=== PATIENT | female | born 1970 | race Caucasian/White ===

== ENCOUNTER 2020-02-23 13:41 | Emergency (ER) | payer OTHER ==
[2020-02-23 14:00] VITALS: RESP 18; TEMP 98.1
[2020-02-23] MEDS ORDERED: KETOROLAC 30 MG/ML 1 ML VIAL IVP STA (14:30)
[2020-02-23] MEDS ORDERED: SODIUM CHLORIDE 0.9% 1,000 ML IV STA (14:30)
[2020-02-23 15:10] LABS: Appearance,Urine Clear (Clear); Bacteria,Urine Rare /hpf; Bilirubin,Urine Negative (Negative); Blood,Urine Negative (Negative); Color,Urine Yellow; Glucose,Urine (UA) Negative (Negative); Ketones,Urine Negative (Negative); Leukocyte Esterase,Urine Small (Negative); Mucus,Urine Rare /hpf; Nitrite,Urine Negative (Negative); PH, Urine 5.5 (5.0-8.0); Protein,Urine Negative (Negative); RBC,Urine <1 /hpf (0-5); Specific Gravity,Urine 1.021 (1.001-1.035); Squamous Epithelial Cell,Urine 5 /hpf (0-4); Urobilinogen,Urine <2.0 mg/dL (<2.0); WBC,Urine 4 /hpf (0-5)
[2020-02-23 15:11] LABS: HCT 47.5 % (34.0-46.0); MCHC 33.6 g/dL (31.0-37.0); MCV 101.4 fL (80.0-100.0); Mean Platelet Volume 8.3; Platelet Count 303 k/uL (150-450); RBC 4.69 m/uL (3.80-5.40); RDW 12.5 % (11.5-15.5); WBC 12.9 k/uL (3.8-10.6)
[2020-02-23 15:14] LABS: ALT 100 U/L (4-34); AST 84 U/L (14-36); African American GFR (CKD) >90 (>60 ml/min/1.73 sqM); Albumin 4.3 g/dL (3.5-5.0); Alkaline Phosphatase 70 U/L (38-126); Anion Gap 9 mmol/L; Blood Urea Nitrogen 18 mg/dL (7-17); Calcium 9.2 mg/dL (8.4-10.2); Carbon Dioxide 20 mmol/L (22-30); Chloride 108 mmol/L (98-107); Glucose 86 mg/dL (74-99); Non-African American GFR(CKD) >90 (>60 ml/min/1.73 sqM); Sodium 137 mmol/L (137-145); Total Bilirubin 1.2 mg/dL (0.2-1.3)
--- NOTE | 2020-02-23 15:21 | ED ---
General Adult HPI - General Chief complaint: Urogenital Stated complaint: Poss UTI Time Seen by Provider: 02/23/20 14:22 Source: patient Mode of arrival: ambulatory Limitations: no limitations - History of Present Illness Initial comments: Patient is a 49-year-old female, with recent diagnosis of hepatitis C, presenting to the emergency Department with complaints of right-sided flank pain 5 days. Patient states the pain started in her right flank area and then has been moving towards her right groin area. She states she has had a kidney stone many years ago and feels like this may be similar. She admits to history of C- section, no other abdominal surgeries. She denies having nausea, vomiting, diarrhea. She denies recent fever or chills. She denies any urinary complaints such as dysuria increase in frequency. Patient states she is also start treatment for hepatitis C before the COVID virus restrictions. Patient does admit to occasionally drinking and feels like her symptoms have increased with alcohol. She has no other complaints at this time. Upon arrival to the ER, her vital signs are stable. - Related Data Allergies Allergy/AdvReac Type Severity Reaction Status Date / Time No Known Allergies Allergy Verified 02/23/20 14:00 Review of Systems ROS Statement: Those systems with pertinent positive or pertinent negative responses have been documented in the HPI. ROS Other: All systems not noted in ROS Statement are negative. Past Medical History Past Medical History: Coronary Artery Disease (CAD), Hyperlipidemia, Hypertension, Memory Impairment Additional Past Medical History / Comment(s): hepatitis C History of Any Multi-Drug Resistant Organisms: None Reported Past Surgical History: Heart Catheterization With Stent, Pacemaker Past Psychological History: No Psychological Hx Reported Smoking Status: Current every day smoker Past Alcohol Use History: Occasional Past Drug Use History: Marijuana General Exam - General Exam Comments Initial Comments: GENERAL: Well-appearing, well-nourished and in no acute distress. HEAD: Atraumatic, normocephalic. EYES: Pupils equal round and reactive to light, extraocular movements intact, sclera anicteric, conjunctiva are normal. ENT: TMs normal, nares patent, oropharynx clear without exudates. Moist mucous membranes. NECK: Normal range of motion, supple without lymphadenopathy or JVD. LUNGS: Breath sounds clear to auscultation bilaterally and equal. No wheezes rales or rhonchi. HEART: Regular rate and rhythm without murmurs, rubs or gallops. ABDOMEN: Right flank pain, right side of abdomen tenderness, mild right lower quadrant tenderness. Soft, normoactive bowel sounds. No guarding, no rebound. No masses appreciated. : Deferred EXTREMITIES: Normal range of motion, no pitting or edema. No clubbing or cyanosis. NEUROLOGICAL: Cranial nerves II through XII grossly intact. Normal speech, normal gait. PSYCH: Normal mood, normal affect. SKIN: Warm, Dry, normal turgor, no rashes or lesions noted. Limitations: no limitations Course Vital Signs 02/23/20 02/23/20 02/23/20 13:55 15:00 16:00 Temperature 98.1 F Pulse Rate 70 73 Respiratory 18 20 18 Rate Blood Pressure 123/85 126/81 O2 Sat by Pulse 100 100 100 Oximetry 02/23/20 16:30 Temperature Pulse Rate 73 Respiratory 18 Rate Blood Pressure 126/81 O2 Sat by Pulse 100 Oximetry Medical Decision Making - Medical Decision Making Patient is a 49-year-old female presenting with right sided abdominal pain 5 days. She was recently diagnosed with hepatitis C and is awaiting treatment post Covid restrictions. She has been seeing Dr. Gipson for this. Patient does admit to alcohol use. Vital signs are stable today. Lab work shows mild leukocytosis at 12.9, elevation of liver enzymes a 84 and 100. Urine shows no signs of infection. CT of the abdomen was obtained and shows no suspicious acute findings. Patient was given Toradol as well as fluids and reports improvement in her symptoms. I discussed with patient under symptoms are likely due to her hepatitis C infection. I recommended she stop drinking alcohol. She needs to continue with other fluids such as water. Patient was given a starter pack of Ultram for pain. Patient is agreeable with this plan of care. She will follow-up with Dr. Laureano. Return parameters were discussed with the patient and she verbalized understanding. - Lab Data Result diagrams: 02/23/20 14:50 02/23/20 14:50 Lab Results 02/23/20 02/23/20 02/23/20 Range/Units 14:50 14:50 14:50 WBC 12.9 H (3.8-10.6) k/uL RBC 4.69 (3.80-5.40) m/uL Hgb 16.0 (11.4-16.0) gm/dL Hct 47.5 H (34.0-46.0) % MCV 101.4 H (80.0-100.0) fL MCH 34.0 (25.0-35.0) pg MCHC 33.6 (31.0-37.0) g/dL RDW 12.5 (11.5-15.5) % Plt Count 303 (150-450) k/uL Neutrophils % (Manual) 43 % Lymphocytes % (Manual) 43 % Monocytes % (Manual) 11 % Eosinophils % (Manual) 3 % Neutrophils # (Manual) 5.55 (1.3-7.7) k/uL Lymphocytes # (Manual) 5.55 H (1.0-4.8) k/uL Monocytes # (Manual) 1.42 H (0-1.0) k/uL Eosinophils # (Manual) 0.39 (0-0.7) k/uL Nucleated RBCs 0 (0-0) /100 WBC Manual Slide Review Performed RBC Morphology Normal Sodium (137-145) mmol/L Potassium (3.5-5.1) mmol/L Chloride (98-107) mmol/L Carbon Dioxide (22-30) mmol/L Anion Gap mmol/L BUN (7-17) mg/dL Creatinine (0.52-1.04) mg/dL Est GFR (CKD-EPI)AfAm (>60 ml/min/1.73 sqM) Est GFR (CKD-EPI)NonAf (>60 ml/min/1.73 sqM) Glucose (74-99) mg/dL Calcium (8.4-10.2) mg/dL Total Bilirubin (0.2-1.3) mg/dL AST (14-36) U/L ALT (4-34) U/L Alkaline Phosphatase (38-126) U/L Total Protein (6.3-8.2) g/dL Albumin (3.5-5.0) g/dL Urine Color Yellow Urine Appearance Clear (Clear) Urine pH 5.5 (5.0-8.0) Ur Specific [place] 1.021 (1.001-1.035) Urine Protein Negative (Negative) Urine Glucose (UA) Negative (Negative) Urine Ketones Negative (Negative) Urine Blood Negative (Negative) Urine Nitrite Negative (Negative) Urine Bilirubin Negative (Negative) Urine Urobilinogen <2.0 (<2.0) mg/dL Ur Leukocyte Esterase Small H (Negative) Urine RBC <1 (0-5) /hpf Urine WBC 4 (0-5) /hpf Ur Squamous Epith Cells 5 H (0-4) /hpf Urine Bacteria Rare H (None) /hpf Urine Mucus Rare H (None) /hpf Urine HCG, Qual Not Detected (Not Detectd) 02/23/20 Range/Units 14:50 WBC (3.8-10.6) k/uL RBC (3.80-5.40) m/uL Hgb (11.4-16.0) gm/dL Hct (34.0-46.0) % MCV (80.0-100.0) fL MCH (25.0-35.0) pg MCHC (31.0-37.0) g/dL RDW (11.5-15.5) % Plt Count (150-450) k/uL Neutrophils % (Manual) % Lymphocytes % (Manual) % Monocytes % (Manual) % Eosinophils % (Manual) % Neutrophils # (Manual) (1.3-7.7) k/uL Lymphocytes # (Manual) (1.0-4.8) k/uL Monocytes # (Manual) (0-1.0) k/uL Eosinophils # (Manual) (0-0.7) k/uL Nucleated RBCs (0-0) /100 WBC Manual Slide Review RBC Morphology Sodium 137 (137-145) mmol/L Potassium 6.0 H (3.5-5.1) mmol/L Chloride 108 H (98-107) mmol/L Carbon Dioxide 20 L (22-30) mmol/L Anion Gap 9 mmol/L BUN 18 H (7-17) mg/dL Creatinine 0.76 (0.52-1.04) mg/dL Est GFR (CKD-EPI)AfAm >90 (>60 ml/min/1.73 sqM) Est GFR (CKD-EPI)NonAf >90 (>60 ml/min/1.73 sqM) Glucose 86 (74-99) mg/dL Calcium 9.2 (8.4-10.2) mg/dL Total Bilirubin 1.2 (0.2-1.3) mg/dL AST 84 H (14-36) U/L ALT 100 H (4-34) U/L Alkaline Phosphatase 70 (38-126) U/L Total Protein 8.0 (6.3-8.2) g/dL Albumin 4.3 (3.5-5.0) g/dL Urine Color Urine Appearance (Clear) Urine pH (5.0-8.0) Ur Specific [place] (1.001-1.035) Urine Protein (Negative) Urine Glucose (UA) (Negative) Urine Ketones (Negative) Urine Blood (Negative) Urine Nitrite (Negative) Urine Bilirubin (Negative) Urine Urobilinogen (<2.0) mg/dL Ur Leukocyte Esterase (Negative) Urine RBC (0-5) /hpf Urine WBC (0-5) /hpf Ur Squamous Epith Cells (0-4) /hpf Urine Bacteria (None) /hpf Urine Mucus (None) /hpf Urine HCG, Qual (Not Detectd) Disposition Clinical Impression: Right sided abdominal pain, Hepatitis C, Dehydration Disposition: HOME SELF-CARE Condition: Stable Instructions (If sedation given, give patient instructions): Abdominal Pain (ED) Additional Instructions: Please return to the Emergency Department if symptoms worsen or any other concerns. Follow-up with GI, Dr. Gipson as discussed. Continue to increase fluid intake. Is patient prescribed a controlled substance at d/c from ED?: No Referrals: None,Stated [Primary Care Provider] - 1-2 days Olga Gipson MD [STAFF PHYSICIAN] - 1-2 days
--- NOTE | 2020-02-23 15:21 | CT ---
EXAMINATION TYPE: CT abdomen pelvis wo con DATE OF EXAM: 02/23/2020 HISTORY: Right sided flank pain CT DLP: 487 mGycm. Automated Exposure Control for Dose Reduction was Utilized. TECHNIQUE: CT scan of the abdomen and pelvis is performed without oral or IV contrast. COMPARISON: NONE FINDINGS: Within the limitations of a non-contrast study, the following observations are made. LUNG BASES: Partial visualization of right-sided pacemaker leads. LIVER/GB: Contracted gallbladder. PANCREAS: No significant abnormality is seen. SPLEEN: Tiny curvilinear spleen or splenic remnant coronal image 67. ADRENALS: Slight low dense nodular thickening left adrenal gland favoring benign hyperplasia. KIDNEYS: No renal stones or hydronephrosis is seen bilaterally. No intraluminal calculi in the bladde r. BOWEL: Suboptimal evaluation of bowel without enteric contrast. No suspicious small or large bowel di latation. GENITAL ORGANS: Anteverted uterus projects just to left of midline. Occasional pelvic phlebolith. No suspicious adnexal masses. LYMPH NODES: No greater than 1cm abdominal or pelvic lymph nodes are appreciated. OSSEOUS STRUCTURES: No significant abnormality is seen. OTHER: No significant additional abnormality is seen. IMPRESSION: No renal stones or hydronephrosis is seen bilaterally. No suspicious acute finding identi fied on this study.
[2020-02-23 15:23] LABS: Eosinophils # (M) 0.39 k/uL (0-0.7); Lymphocytes # (M) 5.55 k/uL (1.0-4.8); Monocytes # (M) 1.42 k/uL (0-1.0); Neutrophils # (M) 5.55 k/uL (1.3-7.7); Neutrophils % (M) 43 %; Nucleated Red Blood Cells 0 /100 WBC (0-0); Total Cells Counted 100
[2020-02-23] MEDS ORDERED: traMADol 50 MG STARTER PACK 3 TAB BTL PO STA (16:24)
[2020-02-23 16:32] VITALS: BP 126/81; PULSE 73
== END 2020-02-23 16:35 | disposition home or self-care (01) ==
LOC: EC 13:41
DX: B19.20 Unspecified viral hepatitis C without hepatic coma (principal); E86.0 Dehydration; R10.9 Unspecified abdominal pain; D72.829 Elevated white blood cell count, unspecified; I25.10 Atherosclerotic heart disease of native coronary artery without angina pectoris; I10 Essential (primary) hypertension; F17.200 Nicotine dependence, unspecified, uncomplicated; Z95.0 Presence of cardiac pacemaker; Z95.5 Presence of coronary angioplasty implant and graft
CPT/HCPCS: 36415; 80053; 85025; 81001; 81025; 74176; 99284; 96374; 96361; J1885

== ENCOUNTER → 2020-03-16 | Outpatient (CLI) | payer SELFPAY ==
--- NOTE | 2020-03-16 11:33 | US ---
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 Hep C EXAM MEASUREMENTS: Liver Length: 11.9 cm Gallbladder Wall: 0.2 cm CBD: 0.4 cm Right Kidney: 10.0 x 4.6 x 4.2 cm Pancreas: visualized portions wnl, tail obscured by overlying midline bowel gas Liver: wnl Gallbladder: wnl Evidence for sonographic Delarosa's sign: no CBD: wnl Right Kidney: wnl IMPRESSION: The liver is homogeneous sonographically despite the patient's known hepatocellular disea se. No suspicious mass seen on today's examination.
[2020-03-16 12:45] LABS: HCT 50.4 % (34.0-46.0); HGB 17.2 gm/dL (11.4-16.0); MCH 34.6 pg (25.0-35.0); MCHC 34.1 g/dL (31.0-37.0); MCV 101.7 fL (80.0-100.0); Mean Platelet Volume 9.5; Platelet Count 278 k/uL (150-450); RBC 4.96 m/uL (3.80-5.40); RDW 12.4 % (11.5-15.5); WBC 10.1 k/uL (3.8-10.6)
[2020-03-16 12:48] LABS: Prothrombin Time 10.4 sec (9.0-12.0)
[2020-03-16 12:55] LABS: African American GFR (CKD) >90 (>60 ml/min/1.73 sqM); Non-African American GFR(CKD) >90 (>60 ml/min/1.73 sqM)
[2020-03-16 20:34] LABS: Hepatitis A Antibody IgM Non-Reactive (Non-Reactive); Hepatitis B Core IgM Non-Reactive (Non-Reactive); Hepatitis B Surface Antigen Non-Reactive (Non-Reactive); Hepatitis C IgG Antibody Reactive (Non-Reactive)
== END | disposition home or self-care (01) ==
LOC: RADUSWWP 10:12
PROVIDERS: ATTEND Internal Medicine Gastroenterology
DX: K76.89 Other specified diseases of liver (principal); B18.2 Chronic viral hepatitis C
CPT/HCPCS: 76705; 80074; 82565; 85027; 85610; 87522

== ENCOUNTER → 2020-08-14 | Outpatient (CLI) | payer BC ==
[2020-08-14 12:46] LABS: HCT 52.8 % (34.0-46.0); HGB 16.9 gm/dL (11.4-16.0); MCH 33.9 pg (25.0-35.0); MCV 106.1 fL (80.0-100.0); Macrocytosis Slight; Mean Platelet Volume 7.7; Platelet Count 360 k/uL (150-450); RBC 4.97 m/uL (3.80-5.40); RDW 12.5 % (11.5-15.5); WBC 12.1 k/uL (3.8-10.6)
[2020-08-14 20:38] LABS: Hepatitis A Antibody IgM Non-Reactive (Non-Reactive); Hepatitis B Core IgM Non-Reactive (Non-Reactive); Hepatitis C IgG Antibody Reactive (Non-Reactive)
[2020-08-14 21:51] LABS: Hepatitis B Surface Antigen Non-Reactive (Non-Reactive)
[2020-08-15 16:24] LABS: Hepatits C Virus RNA Not detected (Not detected); Hepatits C Virus RNA, Quant <12 IU/mL (<12); LOG HCV IU/mL <1.08 (<1.08)
== END | disposition home or self-care (01) ==
LOC: LABWHC1 11:05
PROVIDERS: ATTEND Physician Assistant
DX: B18.2 Chronic viral hepatitis C (principal)
CPT/HCPCS: 36415; 80074; 85027; 87522

== ENCOUNTER 2020-10-03 14:36 | Emergency (ER) | payer BC ==
[2020-10-03 14:43] VITALS: BP 153/105; PULSE 77; RESP 18; TEMP 98.4
--- NOTE | 2020-10-03 15:00 | ED ---
Extremity Problem HPI - General Chief complaint: Extremity Problem,Nontraumatic Stated complaint: R Leg Pain Time Seen by Provider: 10/03/20 14:50 Source: patient, RN notes reviewed Mode of arrival: ambulatory Limitations: no limitations - History of Present Illness Initial comments: 49-year-old female presented emergency from for rash or leg. Patient states her is her rashes showed up overnight, her leg is achy in the area slightly itchy denies any medication soaps lotions surgeon cannot get test by anything. Patient has no other complaints. - Related Data Previous Rx's Medication Instructions Recorded valACYclovir HCL [Valtrex] 1,000 mg PO Q8HR #30 tab 10/03/20 Allergies Allergy/AdvReac Type Severity Reaction Status Date / Time No Known Allergies Allergy Verified 10/03/20 14:43 Review of Systems ROS Statement: Those systems with pertinent positive or pertinent negative responses have been documented in the HPI. ROS Other: All systems not noted in ROS Statement are negative. Past Medical History Past Medical History: Coronary Artery Disease (CAD), Hyperlipidemia, Hypertension, Myocardial Infarction ([place]) Additional Past Medical History / Comment(s): hepatitis C History of Any Multi-Drug Resistant Organisms: None Reported Past Surgical History: Heart Catheterization With Stent, Pacemaker Past Psychological History: No Psychological Hx Reported Smoking Status: Current every day smoker Past Alcohol Use History: Occasional Past Drug Use History: Marijuana General Exam Limitations: no limitations General appearance: alert, in no apparent distress Head exam: Present: atraumatic, normocephalic, normal inspection Eye exam: Present: normal appearance, PERRL, EOMI. Absent: scleral icterus, conjunctival injection, periorbital swelling ENT exam: Present: normal exam, normal oropharynx, mucous membranes moist Neck exam: Present: normal inspection, full ROM. Absent: tenderness, meningismus, lymphadenopathy Respiratory exam: Present: normal lung sounds bilaterally, decreased breath sounds. Absent: respiratory distress, wheezes, rales, rhonchi, stridor Cardiovascular Exam: Present: regular rate, normal rhythm, normal heart sounds. Absent: systolic murmur, diastolic murmur, rubs, gallop, clicks Skin exam: Present: warm, dry, intact, normal color, rash (Right lower leg over the anterior surface of the lei there is noted vesicular rash mild erythema and surrounding tenderness no posterior calf tenderness pedal pulses equal bilaterally) Course Vital Signs 10/03/20 14:40 Temperature 98.4 F Pulse Rate 77 Respiratory 18 Rate Blood Pressure 153/105 O2 Sat by Pulse 97 Oximetry Medical Decision Making - Medical Decision Making 41-year-old presented for rash. This concerning for possible early shingles type rash. Patient was started on Valtrex. We discussed possibility of contrac ting dermatitis though less worrisome. Return parameters were discussed close follow-up was discussed. Disposition Clinical Impression: Shingles, Contact dermatitis Disposition: HOME SELF-CARE Condition: Stable Instructions (If sedation given, give patient instructions): Shingles (ED) Additional Instructions: Please return to the Emergency Department if symptoms worsen or any other concerns. Prescriptions: valACYclovir HCL [Valtrex] 1,000 mg PO Q8HR #30 tab Is patient prescribed a controlled substance at d/c from ED?: No Referrals: Lalita Valentine DO [Primary Care Provider] - 1-2 days Time of Disposition: 15:00
== END 2020-10-03 15:13 | disposition home or self-care (01) ==
LOC: EC 14:36
DX: L25.9 Unspecified contact dermatitis, unspecified cause (principal); B02.9 Zoster without complications; I25.2 Old myocardial infarction; F17.200 Nicotine dependence, unspecified, uncomplicated
CPT/HCPCS: 99283

== ENCOUNTER 2020-11-07 00:02 | Emergency (ER) | payer BC ==
[2020-11-07 00:07] VITALS: BP 160/99; PULSE 91; RESP 20; TEMP 98.4
[2020-11-07] MEDS ORDERED: HYDROcodone/APAP 5-325MG 1 EACH TAB PO STA (00:25)
--- NOTE | 2020-11-07 00:37 | ED ---
General Adult HPI - General Chief complaint: Extremity Injury, Lower Stated complaint: Left ankle injury Time Seen by Provider: 11/07/20 00:13 Source: patient, RN notes reviewed Mode of arrival: ambulatory Limitations: no limitations - History of Present Illness Initial comments: 50-year-old female presents emergency Department chief complaint severe left ankle pain. Patient states started a few hours ago. Patient states she's unsure if she stepped wrong or how this happened. Patient states there is swelling on the lateral portion of her ankle. Patient states hurts with any weightbearing or movement. No redness no fevers chills no paresthesias. Patient offers no complaints. - Related Data Previous Rx's Medication Instructions Recorded valACYclovir HCL [Valtrex] 1,000 mg PO Q8HR #30 tab 10/03/20 Ibuprofen [Motrin] 600 mg PO Q8HR PRN #20 tab 11/07/20 Allergies Allergy/AdvReac Type Severity Reaction Status Date / Time No Known Allergies Allergy Verified 11/07/20 00:06 Review of Systems ROS Statement: Those systems with pertinent positive or pertinent negative responses have been documented in the HPI. ROS Other: All systems not noted in ROS Statement are negative. Past Medical History Past Medical History: Coronary Artery Disease (CAD), Hyperlipidemia, Hypertension, Myocardial Infarction ([place]) Additional Past Medical History / Comment(s): hepatitis C History of Any Multi-Drug Resistant Organisms: None Reported Past Surgical History: Heart Catheterization With Stent, Pacemaker Past Psychological History: No Psychological Hx Reported Smoking Status: Current every day smoker Past Alcohol Use History: Occasional Past Drug Use History: Marijuana General Exam Limitations: no limitations General appearance: alert, in no apparent distress Head exam: Present: atraumatic, normocephalic, normal inspection Eye exam: Present: normal appearance, PERRL, EOMI. Absent: scleral icterus, conjunctival injection, periorbital swelling Neck exam: Present: normal inspection. Absent: tenderness, meningismus, lymphadenopathy Respiratory exam: Present: normal lung sounds bilaterally. Absent: respiratory distress, wheezes, rales, rhonchi, stridor Cardiovascular Exam: Present: regular rate, normal rhythm, normal heart sounds. Absent: systolic murmur, diastolic murmur, rubs, gallop, clicks Extremities exam: Present: other (Left ankle there is moderate swelling of lateral portion, tenderness with palpation neurovascular intact there is no proximal tib-fib tenderness no distal foot tenderness) Course Vital Signs 11/07/20 00:04 Temperature 98.4 F Pulse Rate 91 Respiratory 20 Rate Blood Pressure 160/99 O2 Sat by Pulse 99 Oximetry Medical Decision Making - Medical Decision Making 50-year-old female presented for left ankle pain. Patient has moderate swelling and tenderness over lateral portion consistent with an ankle sprain. Patient has no recollection of a significant injury though she states she may have injured it. There is no signs of infection she has neurovascular intact with equal pulses and no calf tenderness. Patient will be placed in an ankle stirrup brace follow-up with orthopedics if no improvement patient provided pain control. Disposition Clinical Impression: Left ankle pain, Left ankle sprain Disposition: HOME SELF-CARE Condition: Stable Instructions (If sedation given, give patient instructions): Ankle Sprain (ED) Additional Instructions: Please return to the Emergency Department if symptoms worsen or any other concerns. Prescriptions: Ibuprofen [Motrin] 600 mg PO Q8HR PRN #20 tab PRN Reason: Pain Is patient prescribed a controlled substance at d/c from ED?: No Referrals: Lalita Valentine DO [Primary Care Provider] - 1-2 days Lyle Patel DO [Doctor of Osteopathic Medicine] - 1-2 days Time of Disposition: 00:49
--- NOTE | 2020-11-07 00:47 | XR ---
EXAMINATION TYPE: XR ankle complete LT DATE OF EXAM: 11/07/2020 COMPARISON: NONE HISTORY: Ankle pain TECHNIQUE: 3 views FINDINGS: Ankle mortise is anatomic. I see no fracture nor dislocation. There is mild soft tissue swe lling over the lateral malleolus. The hindfoot appears intact. IMPRESSION: Mild soft tissue swelling. No fracture seen.
[2020-11-07] MEDS ORDERED: ACET/COD 300 MG/30 MG STARTER PACK 6 TAB BTL PO STA (00:50)
[2020-11-07] MEDS ORDERED: IBUPROFEN 600 MG STARTER PACK 4 TAB BTL PO STA (00:50)
== END 2020-11-07 01:10 | disposition home or self-care (01) ==
LOC: EC 00:02
DX: S93.402A Sprain of unspecified ligament of left ankle, initial encounter (principal); I25.10 Atherosclerotic heart disease of native coronary artery without angina pectoris; I10 Essential (primary) hypertension; I25.2 Old myocardial infarction; F17.200 Nicotine dependence, unspecified, uncomplicated; Z95.0 Presence of cardiac pacemaker; Z95.5 Presence of coronary angioplasty implant and graft; X50.9XXA Other and unspecified overexertion or strenuous movements or postures, initial encounter
CPT/HCPCS: 73610; 99283; 29515; L4350

== ENCOUNTER → 2020-11-15 | Outpatient (CLI) | payer BC ==
[2020-11-15 12:01] LABS: HCT 48.1 % (34.0-46.0); HGB 16.1 gm/dL (11.4-16.0); MCH 34.6 pg (25.0-35.0); MCHC 33.4 g/dL (31.0-37.0); MCV 103.8 fL (80.0-100.0); Macrocytosis Slight; Mean Platelet Volume 7.6; Platelet Count 319 k/uL (150-450); RBC 4.64 m/uL (3.80-5.40); RDW 12.1 % (11.5-15.5); WBC 7.9 k/uL (3.8-10.6)
[2020-11-15 20:27] LABS: Albumin 4.3 g/dL (3.80-4.90); Albumin/Globulin Ratio 1.72 (1.60-3.17); Bilirubin, Conjugated 0.2 mg/dL (0.20-0.40); Bilirubin,Unconjugated 0.4 mg/dL; Globulin 2.5 g/dL (1.6-3.3); Total Bilirubin 0.6 mg/dL (0.2-1.2); Total Protein 6.8 g/dL (6.2-8.2)
== END | disposition home or self-care (01) ==
LOC: LABWHC1 11:11
PROVIDERS: ATTEND Physician Assistant
DX: B18.2 Chronic viral hepatitis C (principal)
CPT/HCPCS: 36415; 80076; 85027; 87522

== ENCOUNTER → 2021-07-02 | Outpatient (CLI) | payer BC ==
[2021-07-02 20:54] LABS: HCT 46.6 % (37.2-46.3); HGB 15.5 g/dL (12.0-15.0); MCH 33.1 pg (27.0-32.0); MCHC 33.3 g/dL (32.0-37.0); MCV 99.6 fL (80.0-97.0); Mean Platelet Volume 10.7 fL (9.5-12.2); Platelet Count 310 X 10*3/uL (140-440); RBC 4.68 X 10*6/uL (4.10-5.20); RDW 13.2 % (11.5-14.5); WBC 9.52 X 10*3/uL (4.50-10.00)
[2021-07-02 20:59] LABS: INR 0.91 (0.90-1.11)
[2021-07-03 00:49] LABS: ALT 24 U/L (8-44); AST 31 U/L (13-35); Albumin/Globulin Ratio 1.56 (1.60-3.17); Alkaline Phosphatase 62 U/L (41-126); Bilirubin, Conjugated <0.20 mg/dL (0.20-0.40); Globulin 2.7 g/dL (1.6-3.3); Total Bilirubin 0.3 mg/dL (0.3-1.2); Total Protein 6.9 g/dL (6.2-8.2)
[2021-07-03 00:51] LABS: Chol/HDL Ratio 5.37; LDL Cholesterol,Calculated 167.4 mg/dL (0.0-131.0); VLDL Calculation 33.6 mg/dL (5.00-40.00)
== END | disposition home or self-care (01) ==
LOC: LABWHC1 12:34
PROVIDERS: ATTEND Physician Assistant
DX: E78.5 Hyperlipidemia, unspecified (principal); B18.2 Chronic viral hepatitis C
CPT/HCPCS: 36415; 80061; 80076; 85027; 85610; 87522

== ENCOUNTER 2021-07-08 15:42 | Observation (INO) | payer BC ==
[2021-07-08] MEDS ORDERED: ASPIRIN 325 MG TAB PO STA (16:02)
--- NOTE | 2021-07-08 16:02 | ED ---
General Adult HPI - General Chief complaint: Chest Pain Stated complaint: Chest pain/SOB/hand numbness Time Seen by Provider: 07/08/21 15:55 Source: patient, RN notes reviewed, old records reviewed Mode of arrival: wheelchair Limitations: no limitations - History of Present Illness Initial comments: 50-year-old female history of CAD status post [place] a proximally 7 years ago. Patient has had intermittent chest pain throughout the day today. She states it comes and goes lasting approximate 5 minutes per episode. She had some associated nausea without vomiting. No diaphoresis. Pain is in the center of her chest described as a pressure sensation. She is not currently on any anticoagulation. She does have history of hypercholesterolemia and is a current smoker. - Related Data Home Medications Medication Instructions Recorded Confirmed Rosuvastatin Calcium [Crestor] 40 mg PO DAILY 07/08/21 07/08/21 Allergies Allergy/AdvReac Type Severity Reaction Status Date / Time No Known Allergies Allergy Verified 07/08/21 15:45 Review of Systems ROS Statement: Those systems with pertinent positive or pertinent negative responses have been documented in the HPI. ROS Other: All systems not noted in ROS Statement are negative. Past Medical History Past Medical History: Coronary Artery Disease (CAD), Hyperlipidemia, Hypertension, Myocardial Infarction ([place]) Additional Past Medical History / Comment(s): hepatitis C History of Any Multi-Drug Resistant Organisms: None Reported Past Surgical History: Heart Catheterization With Stent, Pacemaker Past Psychological History: No Psychological Hx Reported Smoking Status: Current every day smoker Past Alcohol Use History: Occasional Past Drug Use History: Marijuana General Exam Limitations: no limitations General appearance: alert, in no apparent distress Head exam: Present: atraumatic, normocephalic Eye exam: Present: normal appearance, PERRL ENT exam: Present: normal exam Neck exam: Present: normal inspection. Absent: tenderness, meningismus Respiratory exam: Present: normal lung sounds bilaterally. Absent: respiratory distress, wheezes Cardiovascular Exam: Present: regular rate, normal rhythm GI/Abdominal exam: Present: soft. Absent: distended, tenderness, guarding Extremities exam: Present: normal inspection, normal capillary refill. Absent: pedal edema, calf tenderness Neurological exam: Present: alert, oriented X3, CN II-XII intact. Absent: motor sensory deficit Psychiatric exam: Present: normal affect, normal mood Skin exam: Present: warm, dry, intact Course Vital Signs 07/08/21 07/08/21 15:46 16:42 Temperature 97.8 F Pulse Rate 64 60 Respiratory 18 18 Rate Blood Pressure 164/101 168/96 O2 Sat by Pulse 97 95 Oximetry EKG Findings - EKG Comments: EKG Findings:: EKG: Atrial paced rhythm, rate of 61, SD interval is 196, QRS duration 74, QTC 416, no ST segment elevation. Medical Decision Making - Medical Decision Making 50-year-old female with history of CAD presenting with chest pain. Pain does have typical features. EKG is nonischemic. Chest x-ray is negative for acute cardiac primary findings. She has normal CBC, Dr. Ash who will admit. - Lab Data Result diagrams: 07/08/21 16:02 07/08/21 16:01 Lab Results 07/08/21 07/08/21 07/08/21 Range/Units 16:01 16:01 16:01 WBC (3.8-10.6) k/uL RBC (3.80-5.40) m/uL Hgb (11.4-16.0) gm/dL Hct (34.0-46.0) % MCV (80.0-100.0) fL MCH (25.0-35.0) pg MCHC (31.0-37.0) g/dL RDW (11.5-15.5) % Plt Count (150-450) k/uL MPV Neutrophils % (Manual) % Lymphocytes % (Manual) % Monocytes % (Manual) % Eosinophils % (Manual) % Neutrophils # (Manual) (1.3-7.7) k/uL Lymphocytes # (Manual) (1.0-4.8) k/uL Monocytes # (Manual) (0-1.0) k/uL Eosinophils # (Manual) (0-0.7) k/uL Nucleated RBCs (0-0) /100 WBC Polychromasia PT 10.2 (9.0-12.0) sec INR 0.9 (<1.2) APTT 25.2 (22.0-30.0) sec D-Dimer 0.58 (<0.60) mg/L FEU Sodium 140 (137-145) mmol/L Potassium 4.2 (3.5-5.1) mmol/L Chloride 111 H (98-107) mmol/L Carbon Dioxide 22 (22-30) mmol/L Anion Gap 7 mmol/L BUN 20 H (7-17) mg/dL Creatinine 0.66 (0.52-1.04) mg/dL Est GFR (CKD-EPI)AfAm >90 (>60 ml/min/1.73 sqM) Est GFR (CKD-EPI)NonAf >90 (>60 ml/min/1.73 sqM) Glucose 96 (74-99) mg/dL Calcium 9.9 (8.4-10.2) mg/dL Magnesium 2.2 (1.6-2.3) mg/dL Total Bilirubin 0.3 (0.2-1.3) mg/dL AST 29 (14-36) U/L ALT 21 (4-34) U/L Alkaline Phosphatase 64 (38-126) U/L Troponin I <0.012 (0.000-0.034) ng/mL NT-Pro-B Natriuret Pep pg/mL Total Protein 7.3 (6.3-8.2) g/dL Albumin 4.1 (3.5-5.0) g/dL Lipase 71 (23-300) U/L 07/08/21 07/08/21 Range/Units 16:01 16:02 WBC 10.5 (3.8-10.6) k/uL RBC 4.62 (3.80-5.40) m/uL Hgb 16.1 H (11.4-16.0) gm/dL Hct 46.7 H (34.0-46.0) % MCV 101.0 H (80.0-100.0) fL MCH 34.8 (25.0-35.0) pg MCHC 34.5 (31.0-37.0) g/dL RDW 12.8 (11.5-15.5) % Plt Count 291 (150-450) k/uL MPV 7.9 Neutrophils % (Manual) 36 % Lymphocytes % (Manual) 57 % Monocytes % (Manual) 5 % Eosinophils % (Manual) 2 % Neutrophils # (Manual) 3.78 (1.3-7.7) k/uL Lymphocytes # (Manual) 5.99 H (1.0-4.8) k/uL Monocytes # (Manual) 0.53 (0-1.0) k/uL Eosinophils # (Manual) 0.21 (0-0.7) k/uL Nucleated RBCs 0 (0-0) /100 WBC Polychromasia Present PT (9.0-12.0) sec INR (<1.2) APTT (22.0-30.0) sec D-Dimer (<0.60) mg/L FEU Sodium (137-145) mmol/L Potassium (3.5-5.1) mmol/L Chloride (98-107) mmol/L Carbon Dioxide (22-30) mmol/L Anion Gap mmol/L BUN (7-17) mg/dL Creatinine (0.52-1.04) mg/dL Est GFR (CKD-EPI)AfAm (>60 ml/min/1.73 sqM) Est GFR (CKD-EPI)NonAf (>60 ml/min/1.73 sqM) Glucose (74-99) mg/dL Calcium (8.4-10.2) mg/dL Magnesium (1.6-2.3) mg/dL Total Bilirubin (0.2-1.3) mg/dL AST (14-36) U/L ALT (4-34) U/L Alkaline Phosphatase (38-126) U/L Troponin I (0.000-0.034) ng/mL NT-Pro-B Natriuret Pep 57 pg/mL Total Protein (6.3-8.2) g/dL Albumin (3.5-5.0) g/dL Lipase (23-300) U/L Disposition Clinical Impression: Chest pain Disposition: ADMITTED IP TO THIS [facility] Condition: Stable Is patient prescribed a controlled substance at d/c from ED?: No Referrals: Lalita Valentine DO [Primary Care Provider] - 1-2 days Decision to Admit Reason: Admit from EC Decision Date: 07/08/21 Decision Time: 17:30
--- NOTE | 2021-07-08 16:23 | XR ---
EXAMINATION TYPE: XR chest 2V DATE OF EXAM: 07/08/2021 COMPARISON: NONE HISTORY: Chest pain and tightness with shortness of breath since early this morning. TECHNIQUE: Frontal and lateral views of the chest are obtained. FINDINGS: There is no suspicious focal air space opacity, pleural effusion, or pneumothorax seen. T he cardiac silhouette size is within normal limits with dual lead pacemaker projecting over right atr ium and right ventricle. The osseous structures are intact. IMPRESSION: No acute process.
[2021-07-08 16:29] LABS: Potassium 4.2 mmol/L (3.5-5.1)
[2021-07-08 16:30] LABS: ALT 21 U/L (4-34); AST 29 U/L (14-36); African American GFR (CKD) >90 (>60 ml/min/1.73 sqM); Albumin 4.1 g/dL (3.5-5.0); Alkaline Phosphatase 64 U/L (38-126); Anion Gap 7 mmol/L; Blood Urea Nitrogen 20 mg/dL (7-17); Calcium 9.9 mg/dL (8.4-10.2); Carbon Dioxide 22 mmol/L (22-30); Chloride 111 mmol/L (98-107); Glucose 96 mg/dL (74-99); Lipase 71 U/L (23-300); Magnesium 2.2 mg/dL (1.6-2.3); Non-African American GFR(CKD) >90 (>60 ml/min/1.73 sqM); Sodium 140 mmol/L (137-145); Total Bilirubin 0.3 mg/dL (0.2-1.3); Total Protein 7.3 g/dL (6.3-8.2)
[2021-07-08 16:33] LABS: HCT 46.7 % (34.0-46.0); HGB 16.1 gm/dL (11.4-16.0); MCH 34.8 pg (25.0-35.0); MCHC 34.5 g/dL (31.0-37.0); Mean Platelet Volume 7.9; Platelet Count 291 k/uL (150-450); RBC 4.62 m/uL (3.80-5.40); RDW 12.8 % (11.5-15.5); WBC 10.5 k/uL (3.8-10.6)
[2021-07-08 16:34] LABS: INR 0.9 (<1.2); Partial Thromboplastin Time 25.2 sec (22.0-30.0); Prothrombin Time 10.2 sec (9.0-12.0)
[2021-07-08 17:06] LABS: Eosinophils # (M) 0.21 k/uL (0-0.7); Lymphocytes # (M) 5.99 k/uL (1.0-4.8); Monocytes # (M) 0.53 k/uL (0-1.0); Neutrophils # (M) 3.78 k/uL (1.3-7.7); Neutrophils % (M) 36 %; Nucleated Red Blood Cells 0 /100 WBC (0-0); Polychromasia Present; Total Cells Counted 100
[2021-07-08] MEDS ORDERED: MORPHINE SULFATE 2 MG/ML SYRINGE IVP STA (17:20)
[2021-07-08] MEDS ORDERED: NALOXONE 0.4 MG/ML 1 ML VIAL IV PRN (17:27)
[2021-07-08] MEDS: ACETAMINOPHEN TAB 325 MG TAB PO PRN (21:26)
[2021-07-09] MEDS ORDERED: AMINOPHYLLINE 500 MG/20 ML VIAL IV PRN (09:03)
[2021-07-09] MEDS ORDERED: CAFFEINE CITRATE 60 MG/3 ML VIAL IV PRN (09:03)
[2021-07-09] MEDS ORDERED: REGADENOSON 0.4 MG/5 ML SYRINGE IV PRN (09:03)
[2021-07-09] MEDS: ASPIRIN 81 MG PO SCH (09:41)
--- NOTE | 2021-07-09 10:27 | P.CRDCN ---
History of Present Illness Consult date: 07/09/21 History of present illness: HISTORY OF PRESENT ILLNESS: This is a 50 year old female with a past medical history significant for coronary artery disease with PCI to the LAD in [place] in 2013, permanent pacemaker insertion, hyperlipidemia, and nicotine dependence. Patient follows in the office with Dr. Rodriguez. We have been asked to see the patient in consultation for chest pain. Patient examined at the bedside. Patient states yesterday she was hoping to get her grandkids ready for school when she developed chest pain. She states the pain was in the middle of her chest and felt like a heavy pressure. She reports the pain went to the right side of her jaw. She felt nauseated and short of breath. She states these symptoms are similar to the symptoms she experienced when she had her stent placed so she came to the emergency room for further evaluation. She received aspirin and morphine in the emergency room with relief of her chest pain. At the time of my examination this morning, the patient denies chest pain or pressure. The patient had an echocardiogram completed in July 2020 with ejection fraction 55%. She also underwent a stress test in July 2020 which was negative for reversible ischemia. EKG reveals paced rhythm Chest xray negative for acute process Laboratory data: WBC 10.5. Hemoglobin 16.1. Platelet count 291. D-dimer 0.58. Sodium 140. Potassium 4.2. BUN 20. Creatinine 0.66. Magnesium 2.2. Tr oponin negative 3. ProBNP 57. Current home cardiac medications include Crestor 40mg daily REVIEW OF SYSTEMS: At the time of my exam: CONSTITUTIONAL: Denies fever or chills. HEENT: Denies blurred vision, vision changes, or eye pain. Denies hemoptysis CARDIOVASCULAR: Denies chest pain. Denies orthopnea. Denies PND. Denies palpitations RESPIRATORY: Denies shortness of breath. GASTROINTESTINAL: Denies abdominal pain. Denies nausea or vomiting. HEMATOLOGIC: Denies bleeding disorders. GENITOURINARY: Denies any blood in urine. SKIN: Denies pruitis. Denies rash. PHYSICAL EXAM: VITAL SIGNS: Reviewed. GENERAL: Well-developed in no acute distress. HEENT: Head is normocephalic. Pupils are equal, round. Sclerae anicteric. Mucous membranes of the mouth are moist. Neck supple. No JVD or thyromegaly LUNGS: Respirations even and unlabored. Lungs essentially clear to auscultation bilaterally. HEART: Regular rate and rhythm. S1 and S2 heard. ABDOMEN: Soft. Nondistended. Nontender. EXTREMITIES: Normal range of motion. No clubbing or cyanosis. Peripheral pulses intact. No lower extremity edema NEUROLOGIC: Awake and alert. Oriented x 3. ASSESSMENT: Chest pain Coronary artery disease with PCI to LAD Sick sinus syndrome, s/p permanent pacemaker implantation Hyperlipidemia Nicotine dependence PLAN: An acute coronary event has been ruled out Obtain 2D echo to assess cardiac structure and function Resume home cardiac medications Add aspirin 81mg daily Patient to undergo Janie scan stress test to assess for reversible ischemia Further recommendations pending patient's course Nurse practitioner note has been reviewed by physician. Signing provider agrees with the documented findings, assessment, and plan of care. Past Medical History Past Medical History: Coronary Artery Disease (CAD), Hyperlipidemia, Hypertension, Myocardial Infarction ([place]) Additional Past Medical History / Comment(s): hepatitis C History of Any Multi-Drug Resistant Organisms: None Reported Past Surgical History: Heart Catheterization With Stent, Pacemaker Past Psychological History: No Psychological Hx Reported Smoking Status: Current every day smoker Past Alcohol Use History: Occasional Past Drug Use History: Marijuana Medications and Allergies Home Medications Medication Instructions Recorded Confirmed Type Rosuvastatin Calcium [Crestor] 40 mg PO DAILY 07/08/21 07/08/21 History Allergies Allergy/AdvReac Type Severity Reaction Status Date / Time No Known Allergies Allergy Verified 07/08/21 15:45 Physical Exam Vitals: Vital Signs Temp Pulse Resp BP Pulse Ox 07/09/21 04:00 98.0 F 60 16 109/65 100 07/09/21 00:00 16 120/70 07/08/21 20:49 98.0 F 63 18 150/84 100 07/08/21 18:16 60 18 154/93 97 07/08/21 17:38 60 18 162/97 95 07/08/21 16:42 60 18 168/96 95 07/08/21 15:46 97.8 F 64 18 164/101 97 Intake and Output 07/08/21 07/09/21 07/09/21 22:59 06:59 14:59 Other: Weight 68.039 kg Results 07/08/21 16:02 07/08/21 16:01 Cardiac Enzymes 07/08/21 07/08/21 07/08/21 Range/Units 16:01 16:01 19:36 AST 29 (14-36) U/L Troponin I <0.012 <0.012 (0.000-0.034) ng/mL 07/08/21 Range/Units 22:50 AST (14-36) U/L Troponin I <0.012 (0.000-0.034) ng/mL Coagulation 07/08/21 Range/Units 16:01 PT 10.2 (9.0-12.0) sec APTT 25.2 (22.0-30.0) sec CBC 07/08/21 Range/Units 16:02 WBC 10.5 (3.8-10.6) k/uL RBC 4.62 (3.80-5.40) m/uL Hgb 16.1 H (11.4-16.0) gm/dL Hct 46.7 H (34.0-46.0) % Plt Count 291 (150-450) k/uL Comprehensive Metabolic Panel 07/08/21 Range/Units 16:01 Sodium 140 (137-145) mmol/L Potassium 4.2 (3.5-5.1) mmol/L Chloride 111 H (98-107) mmol/L Carbon Dioxide 22 (22-30) mmol/L BUN 20 H (7-17) mg/dL Creatinine 0.66 (0.52-1.04) mg/dL Glucose 96 (74-99) mg/dL Calcium 9.9 (8.4-10.2) mg/dL AST 29 (14-36) U/L ALT 21 (4-34) U/L Alkaline Phosphatase 64 (38-126) U/L Total Protein 7.3 (6.3-8.2) g/dL Albumin 4.1 (3.5-5.0) g/dL Current Medications Generic Name Dose Route Start Last Admin Trade Name Freq PRN Reason Stop Dose Admin Acetaminophen 650 mg 07/08/21 17:27 07/08/21 21:26 Acetaminophen Tab 325 Mg Tab PO 650 mg Q6HR PRN Administration Mild Pain or Fever > 100.5 Atorvastatin Calcium 80 mg 07/09/21 21:00 Atorvastatin 80 Mg Tab PO HS VICENTE Morphine Sulfate 4 mg 07/08/21 17:27 Morphine Sulfate 4 Mg/Ml Syringe IV Q4HR PRN Severe Pain Naloxone HCl 0.2 mg 07/08/21 17:27 Naloxone 0.4 Mg/Ml 1 Ml Vial IV Q2M PRN Opioid Reversal Intake and Output 07/08/21 07/09/21 07/09/21 22:59 06:59 14:59 Other: Weight 68.039 kg 07/08/21 16:02 07/08/21 16:01
--- NOTE | 2021-07-09 12:55 | NM ---
EXAMINATION TYPE: NM stress lexiscan cardiolite DATE OF EXAM: 07/09/2021 COMPARISON: NONE HISTORY: 50-year-old female with chest pain TECHNIQUE: After the intravenous administration of 9.8 mCi Tc 99m Sestamibi - Cardiolite resting SPE CT images acquired 45 minutes post injection. The patient received 0.4mg Lexiscan, 26.8 mCi Tc 99m Sestamibi - Stress images obtained [address] injection FINDINGS: Review of stress and rest SPECT images demonstrates prominent GI activity adjacent to the inferior wa ll but no distinct perfusion abnormality. Gated analysis shows normal wall motion with an estimated left ventricular ejection fraction of 68 %. TID is increased at 1.24. IMPRESSION: No focal perfusion abnormality seen. However, TID is increased (normal < 1.2). It is nonspecific but can be seen in the setting of multivessel balanced inducible ischemia or hypertrophic heart disease. Further workup as clinically indicated.
--- NOTE | 2021-07-09 13:00 | ECHOF ---
Referral Reason:LV function, chest pain MEASUREMENTS -------- HEIGHT: 152.4 cm WEIGHT: 68.0 kg BP: RVIDd: 2.4 cm (< 3.3) IVSd: 1.1 cm (0.6 - 1.1) LVIDd: 3.3 cm (3.9 - 5.3) LVPWd: 1.2 cm (0.6 - 1.1) IVSs: 1.5 cm LVIDs: 2.7 cm LVPWs: 1.6 cm LAESV Index (A-L): 16.31 ml/m Ao Diam: 3.2 cm (2.0 - 3.7) AV Cusp: 1.9 cm (1.5 - 2.6) MV EXCURSION: 17.570 mm (> 18.000) MV EF SLOPE: 100 mm/s (70 - 150) EPSS: 0.5 cm MV E Papa: 0.57 m/s MV DecT: 287 ms MV A Papa: 0.52 m/s MV E/A Ratio: 1.09 RAP: 5.00 mmHg RVSP: 20.50 mmHg FINDINGS -------- Paced rhythm. This was a technically good study. The left ventricular size is normal. Overall left ventricular systolic function is low-normal with, an EF between 50 - 55 %. The right ventricle is normal in size. The right atrial size is normal. There is mild aortic valve sclerosis. There is no evidence of aortic regurgitation. Mild mitral regurgitation is present. Qakg-[id number] tricuspid regurgitation present. Right ventricular systolic pressure is normal at < 35 mmHg. The pulmonic valve was not well visualized. There is no pericardial effusion. CONCLUSIONS -------- 1. The left ventricular size is normal. 2. Overall left ventricular systolic function is low-normal with, an EF between 50 - 55 %. 3. The right ventricle is normal in size. 4. The right atrial size is normal. 5. There is mild aortic valve sclerosis. 6. Mild mitral regurgitation is present. 7. Osfp-[id number] tricuspid regurgitation present. 8. The pulmonic valve was not well visualized. 9. There is no pericardial effusion. PICK UP DRIVER: Daphney Horta RDCS
[2021-07-09] MEDS ORDERED: ALPRAZolam 0.25 MG TAB PO PRN (13:27)
[2021-07-09] MEDS ORDERED: ALPRAZolam 0.5 MG TAB PO PRN (13:27)
[2021-07-09] MEDS ORDERED: NITROGLYCERIN SL TABS 0.4 MG TAB SUBLINGUAL PRN (13:27)
--- NOTE | 2021-07-09 14:07 | EST ---
EXERCISE STRESS AGE: 50 SEX: F HT: 5'1" WT: 150 lbs. PROTOCOL: Lexiscan STAGE: NA DURATION OF EXERCISE: NA HEART RATE REST: 60 BLOOD PRESSURE REST: 142/97 MAXIMUM HEART RATE ACHIEVED: 105 MAXIMUM BLOOD PRESSURE: 156/103 85% MPHR: NA 100% MPHR: NA METS: NA INDICATIONS: Chest pain. CLINICAL INFORMATION: STRESS DATA: Heart rate 60, pressure 142/97 mmHg. Baseline EKG showed sinus mechanism. Lexiscan in the amount of 0.4 mg was given over 15 seconds per protocol. Maximum heart rate was 102 beats per minute and maximum pressure was 156/103 mmHg. Clinically the patient did not have any symptoms. The EKG did not show any significant ST or T-wave abnormalities concerning for ischemia. CONCLUSION: 1. Nondiagnostic electrocardiogram stress testing in response to Lexiscan. 2. Please follow up on the Cardiolite portion in a separate report from Radiology Department. MMODL / IJN: [id number] /
[2021-07-09] MEDS: MORPHINE SULFATE 4 MG/ML SYRINGE IV PRN ×2 (15:59→23:09)
[2021-07-09] MEDS: ATORVASTATIN 80 MG TAB PO SCH (20:42)
[2021-07-09] MEDS ORDERED: SODIUM CHLORIDE 0.9% 1,000 ML in EMPTY BAG 1 BAG IV ONE (23:00)
[2021-07-09] MEDS: ACETAMINOPHEN TAB 325 MG TAB PO PRN (23:00)
--- NOTE | 2021-07-09 23:13 | P.HPIM ---
History of Present Illness H&P Date: 07/09/21 Chief Complaint: chest pain Farzana Manley is a 50 yo female with a past medical history significant for coronary artery disease with stenting, permanent pacemaker insertion, hyp erlipidemia, and nicotine dependence who presented to the ED complaining of chest pain. Patient states yesterday she was at her house helping her grandchildren get ready for school when she developed pain and pressure in the middle of her chest. She reports the pain went to the right side of her jaw. She felt nauseated and short of breath. She states these symptoms are similar to the symptoms she experienced when she had her stent placed so she came to the emergency room for further evaluation. She does follow regularly with a spot man and had a stress test most recently one year ago which was negative. Review of Systems All systems: negative Constitutional: Denies chills, Denies fever Eyes: denies blurred vision, denies pain Ears, nose, mouth and throat: Denies headache, Denies sore throat Cardiovascular: Reports chest pain, Reports shortness of breath Respiratory: Denies cough Gastrointestinal: Denies abdominal pain, Denies diarrhea, Denies nausea, Denies vomiting Genitourinary: Denies dysuria, Denies hematuria Musculoskeletal: Denies myalgias Integumentary: Denies pruritus, Denies rash Neurological: Denies numbness, Denies weakness Psychiatric: Denies anxiety, Denies depression Endocrine: Denies fatigue, Denies weight change Past Medical History Past Medical History: Coronary Artery Disease (CAD), Hyperlipidemia, Hypertension, Myocardial Infarction ([place]) Additional Past Medical History / Comment(s): hepatitis C Last Myocardial Infarction Date:: 2013 History of Any Multi-Drug Resistant Organisms: None Reported Past Surgical History: Heart Catheterization With Stent, Pacemaker Date of Last Stent Placement:: 2013 Type of Cardiac Device: Permanent Pacemaker Device Placement Date:: 2013 Past Psychological History: No Psychological Hx Reported Smoking Status: Current every day smoker Past Alcohol Use History: Occasional Past Drug Use History: Marijuana Medications and Allergies Home Medications Medication Instructions Recorded Confirmed Type Rosuvastatin Calcium [Crestor] 40 mg PO DAILY 07/08/21 07/08/21 History Allergies Allergy/AdvReac Type Severity Reaction Status Date / Time No Known Allergies Allergy Verified 07/08/21 15:45 Physical Exam Vitals: Vital Signs Temp Pulse Pulse Pulse Resp BP BP 07/09/21 21:57 16 07/09/21 20:00 16 07/09/21 19:23 98.5 F 61 18 134/84 07/09/21 15:00 98.3 F 62 16 142/93 07/09/21 13:57 16 07/09/21 08:00 16 07/09/21 07:00 97.4 F L 60 17 147/91 07/09/21 04:00 98.0 F 60 16 109/65 07/09/21 00:00 16 120/70 Pulse Ox 07/09/21 21:57 07/09/21 20:00 07/09/21 19:23 94 L 07/09/21 15:00 96 07/09/21 13:57 07/09/21 08:00 07/09/21 07:00 98 07/09/21 04:00 100 07/09/21 00:00 Intake and Output 07/09/21 07/09/21 07/10/21 14:59 22:59 06:59 Intake Total 222 358 Balance 222 358 Intake: Oral 222 358 Other: Voiding Method Toilet # Voids 2 2 Weight 68.04 kg General: well nourished, well developed, NAD. Vitals reviewed Eyes: PERRL, EOMI, conjunctiva normal HENT: normocephalic, mucus membranes moist Neck: supple, no JVD Lungs: normal respiratory effort, no wheezes or rales CV: Regular rate and rhythm, no murmur. Peripheral pulses 2+ Abdomen: soft, nondistended, no organomegaly Lymph: no cervical or axillary LAD Skin: warm and dry. Neuro: A&Ox3, normal mood and affect Results CBC & Chem 7: 07/08/21 16:02 07/08/21 16:01 Thrombosis Risk Factor Assmnt - Choose All That Apply Each Factor Represents 1 point: Age 41-60 years Other Risk Factors: No Thrombosis Risk Factor Assessment Total Risk Factor Score: 1 Thrombosis Risk Factor Assessment Level: Low Risk Assessment and Plan Plan: 1. Chest pain. ACS ruled out. Cardiology consulted for further evaluation. Stress test ordered. Continue with lipitor, ASA
[2021-07-10] MEDS: ASPIRIN 81 MG PO SCH (05:34)
[2021-07-10] MEDS ORDERED: ATORVASTATIN 80 MG TAB PO STA (05:36)
[2021-07-10] MEDS ORDERED: HEPARIN SODIUM,PORCINE 10,000 UNIT in SODIUM CHLORIDE 0.9% 1,000 ML IRRIGATION PRN (07:00)
[2021-07-10] MEDS ORDERED: ATORVASTATIN 80 MG TAB PO ONE (07:00)
[2021-07-10] MEDS ORDERED: ASPIRIN 325 MG TAB PO ONE (07:00)
[2021-07-10] MEDS ORDERED: HEPARIN SODIUM,PORCINE 2,500 UNIT in SODIUM CHLORIDE 0.9% 250 ML IRRIGATION PRN (07:00)
[2021-07-10 07:15] LABS: Glucose,Whole Blood 95 mg/dL (75-99)
[2021-07-10] MEDS ORDERED: LIDOCAINE 1% INJ 10MG/ML (20 ML MDV) ONE (10:04)
[2021-07-10] MEDS ORDERED: VERAPAMIL 2.5 MG/ML 2 ML AMP ONE (10:05)
[2021-07-10] MEDS ORDERED: fentaNYL (PF) 50 MCG/ML 2 ML AMP ONE (10:22)
[2021-07-10] MEDS ORDERED: HEPARIN SODIUM 1,000 UN/ML (10ML VL) ONE (10:27)
[2021-07-10] MEDS ORDERED: MIDAZOLAM 2 MG/2 ML VIAL IV ONE ×2 (10:34→10:38)
[2021-07-10] MEDS ORDERED: LIDOCAINE 1% INJ 10MG/ML (10 ML MDV) SQ ONE ×3 (10:40→10:53)
[2021-07-10] MEDS ORDERED: fentaNYL (PF) 50 MCG/ML 2 ML AMP IV ONE (10:42)
[2021-07-10] MEDS ORDERED: HYDROmorphone 0.5 MG/0.5 ML SYRINGE IVP ONE (10:53)
[2021-07-10] MEDS ORDERED: IOPAMIDOL-370 125ML BTL INJ ONE (11:04)
[2021-07-10] MEDS ORDERED: SODIUM CHLORIDE 0.9% 1,000 ML IV ONE (11:04)
[2021-07-10] MEDS ORDERED: RX INFO: IV CONTRAST WAS GIVEN 1 EACH MISC MISCELLANE PRN (11:04)
[2021-07-10] MEDS ORDERED: SODIUM CHLORIDE 0.9% 1,000 ML IV SCH (11:15)
--- NOTE | 2021-07-10 11:30 | CC ---
CARDIAC CATHETERIZATION REPORT DATE OF SERVICE: 07/10/2021 PERFORMING PHYSICIAN: Charli Sena MD PROCEDURE PERFORMED: 1. Selective right and left coronary angiogram. 2. Left heart catheterization. INDICATION: This is a 50-year-old female patient with coronary artery disease and prior stenting of the LAD as well as hypertension and dyslipidemia who presented to the hospital with chest discomfort and underwent a myocardial perfusion imaging stress test that showed evidence of transient ischemic dilatation of the left ventricle concerning for severe triple-vessel CAD of left main. APPROACH: Right common femoral artery. COMPLICATIONS: None. LEVEL OF SEDATION: Moderate, with sedation length of 22 minutes. PROCEDURE DESCRIPTION: After obtaining informed consent, the patient was brought to the cardiac [facility]. Initially, attempting to access the right radial artery was unsuccessful because the patient's wrist is very small and the pulse was diminished to start with. Because of that, I decided to access the right common femoral artery. The right common femoral artery was cannulated using micropuncture technique under ultrasound guidance. The micropuncture wire passed easily. Then I placed a 6-Kiswahili sheath at the right common femoral artery. Selective right and left coronary angiogram was performed with JR4 and JL4 catheters. Left heart catheterization was performed using the JL4 catheter, which crossed the aortic valve. After that I did pullback across the valve. The procedure was completed without complication. SELECTIVE CORONARY ANGIOGRAM: 1. The RCA is a large-caliber vessel. It is a dominant vessel. The RCA is angiographically normal. It distally bifurcates into PDA and PLV branches. Both appeared to be angiographically normal. 2. The left main is angiographically normal. It bifurcates into LCX and LAD. 3. The LCX is a large-caliber vessel. It is a nondominant vessel. It appeared to be angiographically normal. The LCX gives rise to an OM branch which appeared to be angiographically normal. 4. The LAD. The LAD is a large-caliber vessel. The LAD proximally is stented and the stent is patent. The mid LAD has mild disease only and the LAD distally appeared to be angiographically normal. The LAD gives rise to the first and second diagonal branches, and both appeared to be angiographically normal. 5. HEMODYNAMICS: The LVEDP was 12 mmHg without significant gradient across the aortic valve. CONCLUSION: 1. Patent stent in the left anterior descending artery. 2. Normal left ventricular end-diastolic pressure. POSTPROCEDURE MANAGEMENT: 1. Medical treatment. 2. Aggressive cholesterol control. 3. Risk factor modifications. 4. Follow up with the patient. MMAMANDAL / IJN: [id number] /
[2021-07-10] MEDS: ATORVASTATIN 80 MG TAB PO SCH (20:02)
[2021-07-10] MEDS: ACETAMINOPHEN TAB 325 MG TAB PO PRN (20:07)
--- NOTE | 2021-07-10 23:40 | P.PN ---
Subjective Progress Note Date: 07/10/21 Principal diagnosis: chest pain Pt underwent NM stress test which did show focal uptake, pt scheduled for catheterization. She denies chest pain or shortness of breath today. BP stable. Objective - Vital Signs Vital signs: Vital Signs Temp 98.1 F 07/10/21 20:00 Pulse 57 L 07/10/21 20:00 Resp 16 07/10/21 20:00 BP 115/78 07/10/21 20:00 Pulse Ox 97 07/10/21 20:00 Intake & Output 07/10/21 07/10/21 07/11/21 06:59 18:59 06:59 Intake Total 150 Balance 150 Intake: IV 150 Other: Voiding Method Toilet Toilet Toilet # Voids 2 1 2 - Exam General: well nourished, well developed, NAD. Vitals reviewed Lungs: normal respiratory effort, no wheezes or rales CV: Regular rate and rhythm, no murmur. Peripheral pulses 2+ Abdomen: soft, nondistended, no organomegaly Skin: warm and dry. - Labs CBC & Chem 7: 07/08/21 16:02 07/08/21 16:01 Assessment and Plan Plan: Pt for catheterization today, further recommendations per cardiology. Continue w ith ASA and statin
[2021-07-11] MEDS: ASPIRIN 81 MG PO SCH (08:00)
--- NOTE | 2021-07-11 09:51 | P.PN ---
Subjective Progress Note Date: 07/11/21 HISTORY OF PRESENT ILLNESS: This is a 50 year old female with a past medical history significant for coronary artery disease with PCI to the LAD in [place] in 2013, permanent pacemaker insertion, hyperlipidemia, and nicotine dependence. Patient follows in the office with Dr. Rodriguez. We have been asked to see the patient in consultation for chest pain. Patient examined at the bedside. Patient states yesterday she was hoping to get her grandkids ready for school when she develo ped chest pain. She states the pain was in the middle of her chest and felt like a heavy pressure. She reports the pain went to the right side of her jaw. She felt nauseated and short of breath. She states these symptoms are similar to the symptoms she experienced when she had her stent placed so she came to the emergency room for further evaluation. She received aspirin and morphine in the emergency room with relief of her chest pain. At the time of my examination this morning, the patient denies chest pain or pressure. The patient had an echocardiogram completed in July 2020 with ejection fraction 55%. She also underwent a stress test in July 2020 which was negative for reversible ischemia. EKG reveals paced rhythm Chest xray negative for acute process Laboratory data: WBC 10.5. Hemoglobin 16.1. Platelet count 291. D-dimer 0.58. Sodium 140. Potassium 4.2. BUN 20. Creatinine 0.66. Magnesium 2.2. Troponin negative 3. ProBNP 57. Current home cardiac medications include Crestor 40mg daily 07/11/2021 Patient underwent cardiac catheterization yesterday with Dr. Sotelo secondary to abnormal stress test. Cardiac catheterization revealed patent stent in the left anterior descending artery and normal left ventricular end-diastolic pressure. Medical management was recommended. Patient examined this morning at the bedside. She denies chest pain or pressure. She denies shortness of breath. Vital signs are stable. Echocardiogram completed revealed ejection fraction 50- 55%. Mild mitral regurgitation. Wgqg-[id number] tricuspid regurgitation. PHYSICAL EXAM: VITAL SIGNS: Reviewed. GENERAL: Well-developed in no acute distress. HEENT: Head is normocephalic. Pupils are equal, round. Sclerae anicteric. Mucous membranes of the mouth are moist. Neck supple. No JVD or thyromegaly LUNGS: Respirations even and unlabored. Lungs essentially clear to auscultation bilaterally. HEART: Regular rate and rhythm. S1 and S2 heard. ABDOMEN: Soft. Nondistended. Nontender. EXTREMITIES: Normal range of motion. No clubbing or cyanosis. Peripheral pulses intact. No lower extremity edema. Right groin soft with no hematoma noted. NEUROLOGIC: Awake and alert. Oriented x 3. ASSESSMENT: Chest pain Coronary artery disease with PCI to LAD Sick sinus syndrome, s/p permanent pacemaker implantation Hyperlipidemia Nicotine dependence PLAN: Continue current cardiac medications Patient is stable for discharge from a cardiac standpoint Nurse practitioner note has been reviewed by physician. Signing provider agrees with the documented findings, assessment, and plan of care. Objective - Vital Signs Vital signs: Vital Signs Temp 97.5 F L 07/11/21 07:00 Pulse 65 07/11/21 07:00 Resp 16 07/11/21 08:00 BP 130/85 07/11/21 07:00 Pulse Ox 95 07/11/21 07:00 Intake & Output 07/10/21 07/11/21 07/11/21 18:59 06:59 18:59 Intake Total 150 358 Balance 150 358 Intake: IV 150 Oral 358 Other: Voiding Method Toilet Toilet Toilet # Voids 1 1 - Labs CBC & Chem 7: 07/08/21 16:02 07/08/21 16:01
[2021-07-11] MEDS ORDERED: FAMOTIDINE 20 MG TAB PO SCH (13:45)
[2021-07-11 14:47] VITALS: BP 134/87; PULSE 61; RESP 18; TEMP 98.4
--- NOTE | 2021-07-15 06:13 | P.DS ---
Providers Date of admission: 07/08/21 17:28 Attending physician: Franklin Ash MD Consults: 07/08/21 17:28 Consult Physician Routine Consulting Provider: Charli Sena Consult Reason/Comments: CP Do you want consulting provider notified?: Yes Primary care physician: Lalita Valentine Hospital Course: Diagnoses: Chest pain with negative d-dimer. 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 The patient for discharge History of coronary artery disease status post stenting Nicotine dependence Status post permanent pacemaker Hyperlipidemia Hospital course: Farzana Manley is a 50 yo female with a past medical history significant for coronary artery disease with stenting, permanent pacemaker insertion, hyperlipidemia, and nicotine dependence who presented to the ED complaining of chest pain. D-dimer was negative on the presentation was 0.58. Patient underwent cardiac catheterization by Dr. Sotelo which was with no significant stenosis of coronary arteries. Patient was cleared for discharge by electric motor repairing supervisor Patient denies any other symptoms upon discharge, no dyspnea. In urine habits or bowel habits. No fever. Her chest pain is improving. Problems and management plan were discussed with the patient and he verbalized understanding and acceptance Patient was found stable and can be discharged home however he needs follow-up as an outpatient. Patient was instructed to follow up with PCP Dr. Celis within one week and patient agrees. Also patient was instructed to follow up with her electric motor repairing supervisor Dr. Rivas in one week and she agrees to call and make appointments Physical exam Gen: patient is a AAOx3, no distress CVS: S1-S2, RRR, no murmur Lungs: B/L CTA, no wheezing Abdomen: soft, no distention, no tenderness, positive bowel sounds Extremity: no leg edema or induration Time spent more than 35 minutes Patient Condition at Discharge: Stable Plan - Discharge Summary New Discharge Prescriptions: New Aspirin 81 mg PO DAILY #90 tab Famotidine [Pepcid] 20 mg PO BID #60 tab Nitroglycerin Sl Tabs [Nitrostat] 0.4 mg SUBLINGUAL Q5M PRN #25 tab PRN Reason: Chest Pain Continue Rosuvastatin Calcium [Crestor] 40 mg PO DAILY Discharge Medication List Rosuvastatin Calcium [Crestor] 40 mg PO DAILY 07/08/21 [History] Aspirin 81 mg PO DAILY #90 tab 07/11/21 [Rx] Famotidine [Pepcid] 20 mg PO BID #60 tab 07/11/21 [Rx] Nitroglycerin Sl Tabs [Nitrostat] 0.4 mg SUBLINGUAL Q5M PRN #25 tab 07/11/21 [Rx] Follow up Appointment(s)/Referral(s): Roshan Rodriguez MD [Family Provider] - 1 Week (Office will call with appointment time and date.) Lalita Valentine DO [Primary Care Provider] - 1-2 days Patient Instructions/Handouts: *Surgery [facility] - After Heart Catheterization - Telesales Manager Instructions, Chest Pain (DC), How to Stop Smoking (DC) Activity/Diet/Wound Care/Special Instructions: heart healthy diet activity is restricted till you see your doctor Discharge Disposition: HOME SELF-CARE
== END 2021-07-11 15:40 | disposition home or self-care (01) ==
LOC: EC 15:42 → 6NMEDSUR 17:28
PROVIDERS: ADMIT Family Medicine; ATTEND Family Medicine
DX: R07.89 Other chest pain (principal); R11.0 Nausea; R06.02 Shortness of breath; R20.0 Anesthesia of skin; R94.39 Abnormal result of other cardiovascular function study; I25.110 Atherosclerotic heart disease of native coronary artery with unstable angina pectoris; Z95.5 Presence of coronary angioplasty implant and graft; F17.200 Nicotine dependence, unspecified, uncomplicated; I49.5 Sick sinus syndrome; E78.5 Hyperlipidemia, unspecified; I10 Essential (primary) hypertension; I25.2 Old myocardial infarction; Z20.822 Contact with and (suspected) exposure to COVID-19; Z95.0 Presence of cardiac pacemaker; Z86.19 Personal history of other infectious and parasitic diseases; Z79.899 Other long term (current) drug therapy
CPT/HCPCS: 96374; 99285; 36415; 93005; 93017; 93306; 93458; 85379; 83880; 80053; 83690; 83735; 84484; 85025; 85610; 85730; 87635; 71046; 78452; G0378 ×4; C1894; C1769; A9500; J2250; J2270 ×2; J3010; J2785; J2001; J1170; Q9967

== ENCOUNTER → 2022-04-08 | Outpatient (CLI) | payer BC ==
[2022-04-08 14:37] LABS: ALT 20 U/L (8-44); AST 20 U/L (13-35); Albumin 4.2 g/dL (3.8-4.9); Albumin/Globulin Ratio 1.62 (1.60-3.17); Alkaline Phosphatase 68 U/L (41-126); Bilirubin, Conjugated <0.20 mg/dL (0.20-0.40); Globulin 2.6 g/dL (1.6-3.3); Total Protein 6.8 g/dL (6.2-8.2)
[2022-04-08 15:09] LABS: HCT 36.7 % (37.2-46.3); HGB 12.3 g/dL (12.0-15.0); MCH 32.4 pg (27.0-32.0); MCHC 33.5 g/dL (32.0-37.0); MCV 96.6 fL (80.0-97.0); Mean Platelet Volume 11.5 fL (9.5-12.2); NRBC Per 100 WBC 0 /100 WBCS (0.0-0.0); Platelet Count 245 X 10*3/uL (140-440); RDW 13.7 % (11.5-14.5); WBC 12.46 X 10*3/uL (4.50-10.00)
[2022-04-08 16:17] LABS: INR 0.9 (0.90-1.11); Prothrombin Time 9.9 sec (9.9-11.9)
== END | disposition home or self-care (01) ==
LOC: LABWHC1 08:39
PROVIDERS: ATTEND Nurse Practitioner Family
DX: B18.2 Chronic viral hepatitis C (principal)
CPT/HCPCS: 36415; 80076; 85027; 85610; 87522

== ENCOUNTER → 2022-04-25 | Outpatient (CLI) | payer BC ==
--- NOTE | 2022-04-30 08:57 | USB ---
Reason for Exam: Clinical finding. Patient History: Menarche at age 11. Maternal unspecified had breast cancer. Risk Values: Rowena 5 year model risk: 0.8%. NCI Lifetime model risk: 7.1%. Technique: Method: Targeted. Prior Study Comparison: 12/23/2002 Bilateral Special View Mammogram, [facility]. Findings: The axilla of the right breast was scanned. The left axilla is evaluated with real-time linear array sonography. Multiple enlarged lymph nodes are present. Cortex is borderline thickened at 0.31 cm. Normal less than 0.3 cm. Additional workup is recommended. Patient has no mammogram at this location. Screening mammography is recommended. Overall Assessment: Incomplete: need additional imaging evaluation, BI-RAD 0 Management: Screening Mammogram of both breasts. A clinical breast exam by your physician is recommended on an annual basis and results should be correlated with mammographic findings. Electronically signed and approved by: Marin Correa D.O. Radiologis
== END | disposition home or self-care (01) ==
LOC: RADUSWWP 08:20
PROVIDERS: ATTEND Family Medicine
DX: R92.8 Other abnormal and inconclusive findings on diagnostic imaging of breast (principal)

== ENCOUNTER 2022-05-16 13:50 | Emergency (ER) | payer BC ==
[2022-05-16 13:59] VITALS: BP 132/89; PULSE 73; RESP 20; TEMP 98.4
[2022-05-16] MEDS ORDERED: SODIUM CHLORIDE 0.9% 1,000 ML IV STA (14:30)
[2022-05-16] MEDS ORDERED: KETOROLAC 15 MG/ML 1 ML VIAL IVP STA (14:30)
[2022-05-16] MEDS ORDERED: ONDANSETRON 4 MG/2 ML VIAL IVP STA (14:30)
--- NOTE | 2022-05-16 14:45 | ED ---
Abdominal Pain HPI - General Chief Complaint: Abdominal Pain Stated Complaint: Abd pain Time Seen by Provider: 05/16/22 14:00 Source: patient, RN notes reviewed Mode of arrival: ambulatory Limitations: no limitations - History of Present Illness Initial Comments: This is a 51-year-old female who presents to the emergency department for abdominal pain. Patient states that for the last 2-3 nights, she has significant pain in her lower back and lower abdomen. Also states that her urine has been darker than normal. Denies any known history of kidney stones, but states that she has had urinary tract infections in the past. The pain is much more severe than prior infections she has had. This morning she had nausea and vomiting as well. Denies any known fevers. Denies any fevers, chills, sore throat, cough, dyspnea, chest pain, palpit ations, diarrhea, or headaches. MD Complaint: abdominal pain Onset/Timin -: days(s) Location: LLQ, RLQ Radiation: back Associated Symptoms: nausea, vomiting - Related Data Home Medications Medication Instructions Recorded Confirmed Rosuvastatin Calcium [Crestor] 40 mg PO DAILY 07/08/21 07/08/21 Previous Rx's Medication Instructions Recorded Aspirin 81 mg PO DAILY #90 tab 07/11/21 Famotidine [Pepcid] 20 mg PO BID #60 tab 07/11/21 Nitroglycerin Sl Tabs [Nitrostat] 0.4 mg SUBLINGUAL Q5M PRN #25 tab 07/11/21 Cephalexin [Keflex] 500 mg PO Q12HR 7 Days #14 cap 05/16/22 Ondansetron Odt [Zofran Odt] 4 mg PO Q8HR PRN #15 tab 05/16/22 Allergies Allergy/AdvReac Type Severity Reaction Status Date / Time No Known Allergies Allergy Verified 05/16/22 13:59 Review of Systems ROS Statement: Those systems with pertinent positive or pertinent negative responses have been documented in the HPI. ROS Other: All systems not noted in ROS Statement are negative. Past Medical History Past Medical History: Coronary Artery Disease (CAD), Hyperlipidemia, Hypertension, Myocardial Infarction ([place]) Additional Past Medical History / Comment(s): hepatitis C Last Myocardial Infarction Date:: 2013 History of Any Multi-Drug Resistant Organisms: None Reported Past Surgical History: Heart Catheterization With Stent, Pacemaker Date of Last Stent Placement:: 2013 Type of Cardiac Device: Permanent Pacemaker Device Placement Date:: 2013 Past Psychological History: No Psychological Hx Reported Smoking Status: Current every day smoker Past Alcohol Use History: Occasional Past Drug Use History: Marijuana General Exam Limitations: no limitations General appearance: alert, in no apparent distress Head exam: Present: atraumatic, normocephalic, normal inspection Respiratory exam: Present: normal lung sounds bilaterally. Absent: respiratory distress, wheezes, rales, rhonchi, stridor Cardiovascular Exam: Present: regular rate, normal rhythm, normal heart sounds. Absent: systolic murmur, diastolic murmur, rubs, gallop, clicks GI/Abdominal exam: Present: soft, normal bowel sounds. Absent: distended, tenderness, guarding, rebound, rigid Back exam: Present: CVA tenderness (R), CVA tenderness (L) Neurological exam: Present: alert, oriented X3, CN II-XII intact Psychiatric exam: Present: normal affect, normal mood Skin exam: Present: warm, dry, intact, normal color. Absent: rash Course Vital Signs 05/16/22 13:57 Temperature 98.4 F Pulse Rate 73 Respiratory 20 Rate Blood Pressure 132/89 O2 Sat by Pulse 96 Oximetry Medical Decision Making - Medical Decision Making This is a 51-year-old female who presents to the emergency department with lower back pain. Given the possibility of a kidney stone, CT of the abdomen and pelvis was obtained. This did not identify any signs of renal or ureteral calculi. Lab work was nonactionable. A urinalysis was consistent with a urinary tract infection versus contamination. Given the patient's symptoms, will treat her for a urinary tract infection. One dose of ceftriaxone was administered in the emergency department. She'll be discharged on a course of Keflex. Prescription for Zofran sent to the pharmacy to help with associated nausea. Return precautions reviewed in depth, the patient is instructed to return to the emergency department with any new, worsening, or concerning symptoms. Patient verbalized understanding. This case was discussed in detail with the attending ED physician. Presentation, findings, and treatment plan discussed in detail as well. - Lab Data Result diagrams: 05/16/22 15:34 05/16/22 16:00 Lab Results 05/16/22 05/16/22 05/16/22 Range/Units 15:34 15:34 15:34 WBC 9.3 (3.8-10.6) k/uL RBC 4.70 (3.80-5.40) m/uL Hgb 15.5 (11.4-16.0) gm/dL Hct 47.2 H (34.0-46.0) % MCV 100.5 H (80.0-100.0) fL MCH 33.0 (25.0-35.0) pg MCHC 32.8 (31.0-37.0) g/dL RDW 12.9 (11.5-15.5) % Plt Count 242 (150-450) k/uL MPV 8.0 Neutrophils % 35 % Lymphocytes % 52 % Monocytes % 7 % Eosinophils % 2 % Basophils % 1 % Neutrophils # 3.2 (1.3-7.7) k/uL Lymphocytes # 4.8 (1.0-4.8) k/uL Monocytes # 0.7 (0-1.0) k/uL Eosinophils # 0.2 (0-0.7) k/uL Basophils # 0.1 (0-0.2) k/uL Sodium (137-145) mmol/L Potassium (3.5-5.1) mmol/L Chloride (98-107) mmol/L Carbon Dioxide (22-30) mmol/L Anion Gap mmol/L BUN (7-17) mg/dL Creatinine (0.52-1.04) mg/dL Est GFR (CKD-EPI)AfAm (>60 ml/min/1.73 sqM) Est GFR (CKD-EPI)NonAf (>60 ml/min/1.73 sqM) Glucose (74-99) mg/dL Calcium (8.4-10.2) mg/dL Total Bilirubin (0.2-1.3) mg/dL AST (14-36) U/L ALT (4-34) U/L Alkaline Phosphatase (38-126) U/L Total Protein (6.3-8.2) g/dL Albumin (3.5-5.0) g/dL Amylase (30-110) U/L Lipase (23-300) U/L Urine Color Yellow Urine Appearance Cloudy H (Clear) Urine pH 6.5 (5.0-8.0) Ur Specific [place] 1.027 (1.001-1.035) Urine Protein 1+ H (Negative) Urine Glucose (UA) Negative (Negative) Urine Ketones Negative (Negative) Urine Blood Negative (Negative) Urine Nitrite Negative (Negative) Urine Bilirubin Negative (Negative) Urine Urobilinogen 2.0 (<2.0) mg/dL Ur Leukocyte Esterase Large H (Negative) Urine RBC 6 H (0-5) /hpf Urine WBC 23 H (0-5) /hpf Ur Squamous Epith Cells 56 H (0-4) /hpf Amorphous Sediment Rare H (None) /hpf Urine Mucus Moderate H (None) /hpf Urine HCG, Qual Not Detected (Not Detectd) 05/16/22 Range/Units 16:00 WBC (3.8-10.6) k/uL RBC (3.80-5.40) m/uL Hgb (11.4-16.0) gm/dL Hct (34.0-46.0) % MCV (80.0-100.0) fL MCH (25.0-35.0) pg MCHC (31.0-37.0) g/dL RDW (11.5-15.5) % Plt Count (150-450) k/uL MPV Neutrophils % % Lymphocytes % % Monocytes % % Eosinophils % % Basophils % % Neutrophils # (1.3-7.7) k/uL Lymphocytes # (1.0-4.8) k/uL Monocytes # (0-1.0) k/uL Eosinophils # (0-0.7) k/uL Basophils # (0-0.2) k/uL Sodium 139 (137-145) mmol/L Potassium 4.0 (3.5-5.1) mmol/L Chloride 108 H (98-107) mmol/L Carbon Dioxide 27 (22-30) mmol/L Anion Gap 4 mmol/L BUN 22 H (7-17) mg/dL Creatinine 0.96 (0.52-1.04) mg/dL Est GFR (CKD-EPI)AfAm 80 (>60 ml/min/1.73 sqM) Est GFR (CKD-EPI)NonAf 69 (>60 ml/min/1.73 sqM) Glucose 82 (74-99) mg/dL Calcium 9.4 (8.4-10.2) mg/dL Total Bilirubin 0.3 (0.2-1.3) mg/dL AST 27 (14-36) U/L ALT 19 (4-34) U/L Alkaline Phosphatase 58 (38-126) U/L Total Protein 7.3 (6.3-8.2) g/dL Albumin 4.1 (3.5-5.0) g/dL Amylase 85 (30-110) U/L Lipase 74 (23-300) U/L Urine Color Urine Appearance (Clear) Urine pH (5.0-8.0) Ur Specific [place] (1.001-1.035) Urine Protein (Negative) Urine Glucose (UA) (Negative) Urine Ketones (Negative) Urine Blood (Negative) Urine Nitrite (Negative) Urine Bilirubin (Negative) Urine Urobilinogen (<2.0) mg/dL Ur Leukocyte Esterase (Negative) Urine RBC (0-5) /hpf Urine WBC (0-5) /hpf Ur Squamous Epith Cells (0-4) /hpf Amorphous Sediment (None) /hpf Urine Mucus (None) /hpf Urine HCG, Qual (Not Detectd) - Radiology Data Radiology results: report reviewed, image reviewed Disposition Clinical Impression: UTI (urinary tract infection) Disposition: HOME SELF-CARE Instructions (If sedation given, give patient instructions): Urinary Tract Infection in Women (ED) Additional Instructions: Return to the emergency department with any new, worsening, or concerning symptoms. Take the antibiotic as prescribed for 7 days. Take the Zofran every 8hrs as needed for nausea and vomiting. Prescriptions: Cephalexin [Keflex] 500 mg PO Q12HR 7 Days #14 cap Ondansetron Odt [Zofran Odt] 4 mg PO Q8HR PRN #15 tab PRN Reason: Nausea And Vomiting Is patient prescribed a controlled substance at d/c from ED?: No Referrals: Franklin Ash MD [Primary Care Provider] - 1-2 days
--- NOTE | 2022-05-16 15:22 | CT ---
EXAMINATION TYPE: CT abdomen pelvis wo con CT DLP: 478.9 mGycm, Automated exposure control for dose reduction was used. DATE OF EXAM: 05/16/2022 3:09 PM COMPARISON: CT abdomen pelvis most recent from 02/23/2020 . CLINICAL INDICATION:Female, 51 years old with history of Flank pain; bilateral flank pain TECHNIQUE: Renal stone protocol CT of the abdomen and pelvis without IV or oral contrast. Lack of IV or oral contrast limits evaluation of solid and hollow organ viscera. Coronal and sagittal reformats were performed. FINDINGS: LOWER CHEST: Visualized lungs are clear. Partial visualization of lead within the right ventricle. ABDOMEN LIVER: Unremarkable noncontrast appearance. GALLBLADDER AND BILE DUCTS: Unremarkable noncontrast appearance. PANCREAS: Unremarkable noncontrast appearance. SPLEEN: Unremarkable noncontrast appearance. ADRENAL GLANDS: Unremarkable noncontrast appearance. KIDNEYS AND URETERS: No evidence of hydronephrosis or renal calculus. No ureteral calculi. No perinep hric fat stranding or fluid collections. PELVIS BLADDER: Incompletely distended but grossly unremarkable. REPRODUCTIVE: Unremarkable. ABDOMEN & PELVIS STOMACH AND BOWEL: Stomach and duodenum are unremarkable. No focal wall thickening or surrounding inf lammatory changes. The appendix is within normal limits. No evidence of bowel obstruction. PERITONEUM: No evidence of pneumoperitoneum or free fluid. VASCULATURE: Mild atherosclerotic calcifications are present throughout the abdominal aorta and its b ranches. No evidence of aortic aneurysm. MUSCULOSKELETAL: No acute osseous abnormalities LYMPH NODES: No gross evidence for lymphadenopathy. SOFT TISSUE/ABDOMINAL WALL: Small fat filled right inguinal hernia. IMPRESSION: No acute abdominal/pelvic process.
[2022-05-16 15:56] LABS: Amorphous Sediment,Urine Rare /hpf; Appearance,Urine Cloudy (Clear); Bilirubin,Urine Negative (Negative); Blood,Urine Negative (Negative); Color,Urine Yellow; Glucose,Urine (UA) Negative (Negative); Ketones,Urine Negative (Negative); Leukocyte Esterase,Urine Large (Negative); Mucus,Urine Moderate /hpf; Nitrite,Urine Negative (Negative); PH, Urine 6.5 (5.0-8.0); Protein,Urine 1+ (Negative); RBC,Urine 6 /hpf (0-5); Specific Gravity,Urine 1.027 (1.001-1.035); Squamous Epithelial Cell,Urine 56 /hpf (0-4); WBC,Urine 23 /hpf (0-5)
[2022-05-16] MEDS ORDERED: cefTRIAXone IN SWFI 1,000 MG/10 ML SYRINGE IVP STA (16:02)
[2022-05-16 16:14] LABS: Albumin 4.1 g/dL (3.5-5.0); Calcium 9.4 mg/dL (8.4-10.2); Total Bilirubin 0.3 mg/dL (0.2-1.3); Total Protein 7.3 g/dL (6.3-8.2)
[2022-05-16 16:20] LABS: Basophils # (A) 0.1 k/uL (0-0.2); Basophils % (A) 1 %; Eosinophils # (A) 0.2 k/uL (0-0.7); Eosinophils % (A) 2 %; HCT 47.2 % (34.0-46.0); HGB 15.5 gm/dL (11.4-16.0); Lymphocytes # (A) 4.8 k/uL (1.0-4.8); Lymphocytes % (A) 52 %; MCHC 32.8 g/dL (31.0-37.0); MCV 100.5 fL (80.0-100.0); Monocytes # (A) 0.7 k/uL (0-1.0); Monocytes % (A) 7 %; Neutrophils # (A) 3.2 k/uL (1.3-7.7); Neutrophils % (A) 35 %; Platelet Count 242 k/uL (150-450); RDW 12.9 % (11.5-15.5); WBC 9.3 k/uL (3.8-10.6)
[2022-05-16] MEDS ORDERED: ONDANSETRON 4 MG ODT STARTER PACK 2 TAB BTL PO STA (16:27)
== END 2022-05-16 17:13 | disposition home or self-care (01) ==
LOC: EC 13:50
DX: N39.0 Urinary tract infection, site not specified (principal); E78.5 Hyperlipidemia, unspecified; I10 Essential (primary) hypertension; F17.200 Nicotine dependence, unspecified, uncomplicated; Z82.49 Family history of ischemic heart disease and other diseases of the circulatory system
CPT/HCPCS: 36415; 80053; 82150; 83690; 85025; 81001; 81025; 87086; 74176; 99284; 96374; 96375; J2405; J0696; J1885; S0119

== ENCOUNTER → 2022-05-16 | Outpatient (CLI) | payer BC ==
--- NOTE | 2022-05-19 17:04 | MM ---
Reason for Exam: Screening (asymptomatic). Last mammogram was performed 19 year(s) and 5 month(s) ago. Patient History: Menarche at age 11. First Full-Term at age 18. Postmenopausal. Patient has history of breast feeding. Maternal cousin had breast cancer. Risk Values: Rowena 5 year model risk: 0.8%. NCI Lifetime model risk: 7.1%. Prior Study Comparison: 12/23/2002 Bilateral Special View Mammogram, [facility]. Tissue Density: There are scattered fibroglandular densities. Findings: Analyzed By CAD. There is a well-circumscribed 6 mm oval density within the upper outer aspect mid left breast 10 cm from the nipple. Additional evaluation with ultrasound is recommended. Overall Assessment: Incomplete: need additional imaging evaluation, BI-RAD 0 Management: Diagnostic Breast Ultrasound of the left breast. A negative mammogram report should not preclude additional follow up of suspicious palpable abnormalities. Patient should continue monthly self breast exam. A clinical breast exam by your physician is recommended on an annual basis and results should be correlated with mammographic findings. Electronically signed and approved by: Marin Correa D.O. Radiologis
== END | disposition home or self-care (01) ==
LOC: RADMAMWWP 09:26
PROVIDERS: ATTEND Family Medicine
DX: Z12.31 Encounter for screening mammogram for malignant neoplasm of breast (principal); Z78.0 Asymptomatic menopausal state; Z80.3 Family history of malignant neoplasm of breast
CPT/HCPCS: 77067

== ENCOUNTER → 2022-06-02 | Outpatient (CLI) | payer BC ==
--- NOTE | 2022-06-02 10:41 | USB ---
Patient History: Menarche at age 11. First Full-Term at age 18. Postmenopausal. Patient has history of breast feeding. Maternal cousin had breast cancer. Risk Values: Rowena 5 year model risk: 0.8%. NCI Lifetime model risk: 7.1%. Technique: Method: Targeted. Patient Position: Supine. Prior Study Comparison: 12/23/2002 Bilateral Special View Mammogram, [facility]. 05/16/2022 Bilateral MG screening mammo w CAD, [facility]. Findings: The upper outer quadrant of the left breast was scanned. There is a 0.8 x 0.4 x 0.6 cm oval density with the hyperechoic hilum compatible with an intramammary lymph node. This area corresponds to the mammographic findings.. Overall Assessment: Benign, BI-RAD 2 Management: Screening Mammogram of both breasts in 1 year. A clinical breast exam by your physician is recommended on an annual basis and results should be correlated with mammographic findings. Electronically signed and approved by: Marin Correa D.O. Radiologis
== END | disposition home or self-care (01) ==
LOC: RADUSWWP 10:11
PROVIDERS: ATTEND Family Medicine
DX: R92.8 Other abnormal and inconclusive findings on diagnostic imaging of breast (principal); Z78.0 Asymptomatic menopausal state; Z80.3 Family history of malignant neoplasm of breast

== ENCOUNTER → 2022-09-25 | Outpatient (CLI) | payer BC ==
--- NOTE | 2022-09-25 15:20 | USB ---
Reason for Exam: Follow-up at short interval from prior study. Patient History: Menarche at age 11. First Full-Term at age 18. Postmenopausal. Patient has history of breast feeding. Maternal cousin had breast cancer. Risk Values: Rowena 5 year model risk: 0.8%. NCI Lifetime model risk: 7.1%. Prior Study Comparison: 12/23/2002 Bilateral Special View Mammogram, [facility]. 05/16/2022 Bilateral MG screening mammo w CAD, [facility]. Findings: The upper outer quadrant of the left breast, the axilla of the left breast and the retroareolar of the left breast were scanned. Targeted ultrasound upper outer quadrant left breast including the axillary region. There is an unchanged 7 x 6 x 4 mm intramammary lymph node at the 2:00 position, 10 cm from the nipple, corresponding well to the mammographic finding. Incidentally, prominent left axillary lymph node measures 1.9 x 0.8 x 0.7 cm. The cortex is borderline thickened at 3 mm. Given similar appearance to lymph nodes on the contralateral side, suspect a benign systemic etiology. Short interval follow-up recommended at the time of the patient's annual study. Overall Assessment: Probably benign, BI-RAD 3 Management: Diagnostic Mammogram of both breasts in 7 months. Diagnostic Breast Ultrasound of both breasts in 7 months. In time for the patient's annual exam. Ultrasound to assess bilateral axillary lymph nodes. Patient should continue monthly self breast exams. Results were given to the patient verbally at the time of exam. Electronically signed and approved by: Dillon Ko M.D. Radiologist
--- NOTE | 2022-09-25 15:32 | US ---
EXAMINATION TYPE: US axilla RT DATE OF EXAM: 09/25/2022 COMPARISON: 04/25/2022 CLINICAL HISTORY: 51-year-old female R92.8 ABN MAMMO, N63.0 BREAST LUMP. Patient has had numbness and tingling to right arm and has pain in right axilla. Previous US done in May 2022 shows prominent lymph nodes with borderline cortical thickening.. Technique: Multiple sonographic images of the right axilla is performed. FINDINGS: A few right axillary lymph nodes are present. Largest measures 2.1 x 1.0 x 0.5 cm. This is in compari son to 2.3 x 1.3 x 0.7 cm, previously. Cortex measures up to 2 mm versus 3 mm, previously. Given shayy lar lymph nodes on the contralateral side, a benign etiology is suspected. Precautionary follow up at the time of the patient's annual mammogram is recommended. IMPRESSION: Some prominent but nonenlarged lymph nodes in both axilla, relatively similar to 04/25/2022. There is b orderline cortical thickening. A benign etiology is suspected given stability and symmetry. Additiona l short interval follow-up recommended in 7 months at the time of the patient's annual mammogram.
== END | disposition home or self-care (01) ==
LOC: RADUSWWP 14:15
PROVIDERS: ATTEND Family Medicine
DX: R92.8 Other abnormal and inconclusive findings on diagnostic imaging of breast (principal); N63.10 Unspecified lump in the right breast, unspecified quadrant; Z78.0 Asymptomatic menopausal state; Z80.3 Family history of malignant neoplasm of breast

== ENCOUNTER → 2023-03-04 | Outpatient (CLI) | payer BC ==
--- NOTE | 2023-03-04 15:29 | US ---
EXAMINATION TYPE: US venous doppler duplex UE RT DATE OF EXAM: 03/04/2023 COMPARISON: NONE CLINICAL INDICATION: Female, 52 years old with history of M79.621 Pain right upper limb; Pain in righ t neck and arm. SIDE PERFORMED: Right Grayscale, color doppler, spectral doppler imaging performed of the deep veins of the right upper ext remity. There is normal flow, compressibility and vascular waveforms. The right internal jugular, lopez bclavian, axillary, basilic, brachial, cephalic, radial, and ulnar veins were evaluated. Right Arm: Negative for DVT IMPRESSION: No ultrasound evidence for deep venous thrombosis of the right upper extremity.
== END | disposition home or self-care (01) ==
LOC: RADUSWWP 14:46
PROVIDERS: ATTEND Internal Medicine Clinical Cardiac Electrophysiology
DX: M79.621 Pain in right upper arm (principal); M54.2 Cervicalgia